=== PATIENT | male | born 1960 | race Caucasian/White ===

== ENCOUNTER 2017-08-10 18:02 | Emergency (ER) | payer BC ==
[~2017-08-10 18:02] MED LIST: AMLODIPINE BESYL5 MG PO; ANDROGEL1 % TD; ATORVASTATI80 MG/TAB PO; BAYER ASPIRIN E81 MG PO; BAYER LOW DOSE81 MG PO; BAYER LOW81 MG OR; BENAZEPRIL10 MG PO; BYETTA10 MCG SC; BYETTA10 SC; CEPHALEXIN500 MG OR; CLOPIDOGREL75 MG PO; CYANOCOBALAM1000 MCG IJ; FARXIGA10 MG PO; FLEXERIL OR; GLUCOPHAGE1000 MG PO; HUMALOG KW200 UNIT/M SC; HYDROCHLOROTH12.5 MG OR; INSULIN PUM1; INSULIN PUMP; LEVEMIR FL100 UNIT/M SC; LEVEMIR SC; LOPRESSOR25 M1 PO; LORTAB 10 OR; LORTAB 5 OR; LORTAB 5-325 MG1 TAB PO; LOTREL1 CA1 PO; LOTREL1 CA2 PO; MAG-OXIDE400 MG PO; METFORMIN500 M2 PO; NAPROSYN500 MG OR; NIASPAN500 MG OR; NOVOLOG SC; SIMVASTATIN40 MG PO; TORSEMIDE10 M1 OR; TORSEMIDE10 MG OR; VITAMIN D32000 UNIT PO; ZITHROMAX250 MG OR
== END 2017-08-10 18:06 | disposition expired | DRG 914 ==
LOC: ED 18:04
DX: S09.90XA Unspecified injury of head, initial encounter (principal); I10 Essential (primary) hypertension; S49.92XA Unspecified injury of left shoulder and upper arm, initial encounter; S49.91XA Unspecified injury of right shoulder and upper arm, initial encounter; R23.0 Cyanosis; I46.8 Cardiac arrest due to other underlying condition; E11.9 Type 2 diabetes mellitus without complications; E78.5 Hyperlipidemia, unspecified; I25.10 Atherosclerotic heart disease of native coronary artery without angina pectoris; V29.9XXA Motorcycle rider (driver) (passenger) injured in unspecified traffic accident, initial encounter